=== PATIENT | male | born 1940 | race Caucasian/White ===

== ENCOUNTER → 2017-02-23 | Outpatient (CLI) | payer MEDICARE ==
[~2017-02-23] MED LIST: ASPI81TA11 PO; CALA180T PO; CAPT50TA PO; CHEL50TA PO; CLON.2 PO; FISH100020 PO; GABA100C4 PO; HYDR12.56 PO; LORTA5 PO; MEVA40TA6 PO; NEXI40CA PO; NIAC500T18 PO; VITA100017 PO; ZANA4CAP PO; [UNRECOGNIZED DRUG - CODE] PO
--- NOTE | 2017-02-24 08:53 | RSPPFT ---
DATE OF PROCEDURE: 02/23/17 COMMENTS: Spirometry shows FVC of 2.2 at 60%, FEV1 of 1.82 at 62%, FEV1/FVC ratio is normal. Flow is normal at FEF 25, FEF 50 and FEF 25-75. There is no response after acutely inhaled bronchodilator treatment. Lung volumes show residual volume is normal. TLC is decreased. Diffusion capacity is normal when corrected for alveolar volume. Flow volume loop indicates a restrictive pattern. IMPRESSION: 1. Mild restrictive lung disease. 2. Lung volumes are slightly decreased. 3. No response after bronchodilator treatment. 4. Normal diffusion capacity.
== END ==
LOC: PHRSP 07:49
PROVIDERS: ATTEND Specialist
DX: R06.00 Dyspnea, unspecified (principal)
CPT/HCPCS: 94060; 94726; 94729

== ENCOUNTER 2017-04-25 12:17 | Emergency (ER) | payer MEDICARE ==
[~2017-04-25] VITALS: Ht 175.3 cm; Wt 115.0 kg
[2017-04-25 12:23] VITALS: BP 153/71; PULSE 62; RESP 18; TEMP 97.9; O2SAT 94
[2017-04-25] MEDS ORDERED: FISHCAP4 PO (12:46)
[2017-04-25] MEDS ORDERED: NIAC100T2 PO (12:46)
[2017-04-25] MEDS ORDERED: OMEP40CA2 PO (12:46)
[2017-04-25] MEDS ORDERED: HYDR12.56 PO (12:46)
[2017-04-25] MEDS ORDERED: LOVA40TA PO (12:46)
[2017-04-25] MEDS ORDERED: ENAL20TA PO (12:46)
[2017-04-25] MEDS ORDERED: VITA200C3 PO (12:46)
[2017-04-25] MEDS ORDERED: VERA180C3 PO (12:46)
[2017-04-25] MEDS ORDERED: MULTTAB67 PO (12:46)
[2017-04-25] MEDS ORDERED: GABA300C5 PO (12:46)
[2017-04-25] MEDS ORDERED: VITA500T83 PO (12:46)
[2017-04-25] MEDS ORDERED: GEMF600T PO (12:46)
[2017-04-25] MEDS ORDERED: DICL75TA PO (12:46)
[2017-04-25] MEDS ORDERED: CLON0.2T PO (12:46)
[2017-04-25] MEDS ORDERED: ZINC50TA2 PO (12:46)
[2017-04-25] MEDS ORDERED: VITA100T54 PO (12:46)
--- NOTE | 2017-04-25 13:53 | RADRPT ---
EXAM DATE/TIME: 04/25/2017 13:29 [place] COMPARISON: No previous studies available for comparison. INDICATIONS : Right shoulder pain after falling a week ago. MEDICAL HISTORY : Hypertension. SURGICAL HISTORY : None. ENCOUNTER: Initial ACUITY: 1 week PAIN SCORE: 8/10 LOCATION: Right head of humerus. FINDINGS: No fracture is seen. The humeral head is mildly high riding. There is some sclerosis of the superior glenoid. There is a 1.3 cm calcific density projecting over the scapula likely representing a foreign body in the subscapularis bursa. The acromioclavicular joint is normally aligned. CONCLUSION: Degenerative change of the glenohumeral joint and a suspected loose body in the subscapularis bursa. Benedict Del Rosario MD on April 25, 2017 at 13:49 Board Certified Radiologist. This report was verified electronically.
[2017-04-25] MEDS ORDERED: MELO15TA20 PO (14:27)
--- NOTE | 2017-04-25 14:27 | PD ---
HPI Chief Complaint: Injury Time Seen by Provider: 14:22 Travel History International Travel<30 days: No Contact w/Intl Traveler<30days: No Traveled to known affect area: No History of Present Illness HPI 76-year-old male here with right shoulder pain after he fell one week ago. He denies head injury or loss of consciousness. He reports he tripped on uneven [place] falling onto the right side. He has pain in the shoulder with range of motion. Pain is relieved with rest. Denies paresthesias or weakness of the extremity. Symptom severity is mild. PFSH Past Medical History Hx Anticoagulant Therapy: Yes (BABY ASA) Arthritis: No Asthma: No Autoimmune Disease: No Blood Disorders: No Anxiety: No Depression: No Heart Rhythm Problems: Yes (PALPATATIONS) Cancer: Yes (SKIN CANCER , PROSTATE) Cardiac Catheterization: No Cardiovascular Problems: Yes (HTN, CHOL) High Cholesterol: Yes Chemotherapy: No Chest Pain: No Congestive Heart Failure: No COPD: No Cerebrovascular Accident: No Diabetes: No Diminished Hearing: No Endocrine: No Gastrointestinal Disorders: Yes (HX REFLUX) GERD: No Glaucoma: No Genitourinary: No Headaches: No Hepatitis: No Hiatal Hernia: No Hypertension: Yes Immune Disorder: No Kidney Stones: No Medical other: No Musculoskeletal: Yes (ARTHRITIS, BACK) Neurologic: No Psychiatric: No Reproductive: Yes (HX PROSTATE CANCER) Respiratory: No Myocardial Infarction: No Radiation Therapy: No Renal Failure: No Seizures: No Sickle Cell Disease: No Sleep Apnea: No Thyroid Disease: No Ulcer: No Past Surgical History Abdominal Surgery: Yes (APPENDECTOMY) AICD: No Appendectomy: Yes Body Medical Devices: NONE Cardiac Surgery: No Coronary Artery Bypass Graft: No Ear Surgery: No Endocrine Surgery: No Eye Surgery: Yes (08/06 NEIL UPPER LID BLEPHAROPLASTY) Genitourinary Surgery: No Gynecologic Surgery: No Insulin Pump: No Joint Replacement: No Neurologic Surgery: Yes (LUMBAR LAMINECTOMY ([address] YOUNG)) Oral Surgery: Yes (TONSILECTOMY) Pacemaker: No Thoracic Surgery: No Tonsillectomy: Yes Other Surgery: Yes Family History Family Myocardial Infarction: Yes Social History Alcohol Use: No Tobacco Use: No Substance Use: No Allergies-Medications (Allergen,Severity, Reaction): Coded Allergies: hydromorphone (Unverified Allergy, Severe, Itching, 04/25/17) Reported Meds & Prescriptions Reported Meds & Active Scripts Active Reported Vitamin C ER (Ascorbic Acid) 500 Mg Maikol 1,000 Mg PO DAILY Zinc Gluconate 50 Mg Tab 50 Mg PO DAILY Vitamin B-1 (Thiamine HCl) 100 Mg Tab 100 Mg PO DAILY Fish Oil + D3 (Fish Oil-Cholecalciferol) 1,200-1,000 Mg-Unit Cap 1 Cap PO DAILY Vitamin E 200 Unit Cap 400 Units PO DAILY Multiple Vitamin 1 Tab 1 Tab PO DAILY Niacin 100 Mg Tab 100 Mg PO DAILY Omeprazole 40 Mg Cap 40 Mg PO DAILY Gemfibrozil 600 Mg Tab 600 Mg PO BIDAC Take 30 minutes prior to breakfast and dinner. Gabapentin 300 Mg Cap 300 Mg PO BID Verapamil SR (Verapamil HCl) 180 Mg Cap 180 Mg PO BID Lovastatin 40 Mg Tab 40 Mg PO DAILY Hydrochlorothiazide 12.5 Mg Tab 12.5 Mg PO DAILY Diclofenac Sodium DR (Diclofenac Sodium) 75 Mg Tabdr 75 Mg PO DAILY Clonidine (Clonidine HCl) 0.2 Mg Tab 0.2 Mg PO BID Enalapril (Enalapril Maleate) 20 Mg Tab 20 Mg PO BID Review of Systems Except as stated in HPI: all other systems reviewed are Neg General / Constitutional: No: Fever Eyes: No: Visual changes HENT: No: Headaches Cardiovascular: No: Chest Pain or Discomfort Respiratory: No: Shortness of Breath Gastrointestinal: No: Abdominal Pain Physical Exam Narrative GENERAL: Alert male. Well-appearing. SKIN: Warm and dry. No areas of ecchymosis. HEAD: Normocephalic. Atraumatic EYES: No scleral icterus. No injection or drainage. NECK: Supple, trachea midline. No JVD or lymphadenopathy. No cervical midline tenderness. CARDIOVASCULAR: Regular rate and rhythm without murmurs, gallops, or rubs. No chest wall tenderness RESPIRATORY: Breath sounds equal bilaterally. No accessory muscle use. GASTROINTESTINAL: Abdomen soft, non-tender, nondistended. MUSCULOSKELETAL: No cyanosis, or edema. Right upper extremity: Tenderness to the anterior posterior aspect of the shoulder. No deformity. Pain with abduction, external rotation, forward extension of the shoulder. 2+ brachial radial pulse. Normal sensation. Brisk cap refill. BACK: Nontender without obvious deformity. No CVA tenderness. Data Data Last Documented VS Vital Signs Date Time Temp Pulse Resp B/P (MAP) Pulse Ox O2 Delivery O2 Flow Rate FiO2 04/25/17 12:23 97.9 62 18 153/71 (98) 94 Orders Orders Shoulder, Complete (>2vws) (04/25/17 ) MDM Medical Decision Making Medical Screen Exam Complete: Yes Emergency Medical Condition: Yes Differential Diagnosis Fracture, strain, contusion Narrative Course 76-year-old male here with right shoulder pain after a mechanical fall approximately one week ago. X-rays negative for fracture. Patient is neurovascular intact. Pain is being honorably controlled with Tylenol. Patient will be prescribed meloxicam, arm will be put in a sling for comfort, patient to follow with primary doctor. Diagnosis Primary Impression: Shoulder injury Qualified Codes: S49.91XA - Unspecified injury of right shoulder and upper arm , initial encounter Referrals: Primary Care Physician Additional Instructions: With a sling for comfort. Take the meloxicam as needed for pain. Follow-up with her primary doctor Scripts Meloxicam (Meloxicam) 15 Mg Tab 15 MG PO DAILY for Arthritis Pain, #14 TAB 0 Refills Prov: Nancy Smalls 04/25/17 Disposition: 01 DISCHARGE HOME Condition: Stable Nancy Smalls Apr 25, 2017 14:27
== END 2017-04-25 14:40 | disposition home or self-care (01) ==
LOC: PHEFT 12:17
DX: S49.91XA Unspecified injury of right shoulder and upper arm, initial encounter (principal); I10 Essential (primary) hypertension; E78.00 Pure hypercholesterolemia, unspecified; K21.9 Gastro-esophageal reflux disease without esophagitis; M19.90 Unspecified osteoarthritis, unspecified site; Z79.82 Long term (current) use of aspirin; Z85.46 Personal history of malignant neoplasm of prostate; W01.0XXA Fall on same level from slipping, tripping and stumbling without subsequent striking against object, initial encounter
CPT/HCPCS: 73030; 99283